=== PATIENT | female | born 1965 | race Two or more races ===

== ENCOUNTER → 2020-06-29 15:33 | Inpatient (IN) | payer OTHER ==
[2020-06-26] VITALS (16 sets, daily range): BP systolic 108–153; BP diastolic 42–76
--- NOTE | 2020-06-26 11:04 | Anethesia Preoperative Eval ---
Anesthesia Pre-op PMH/ROS General Date of Evaluation: Jun 26, 2020 Time of Evaluation: 11:56 Anesthesiologist: Tamia ASA Score: ASA 3 Mallampati Score Class I : Soft palate, uvula, fauces, pillars visible Class II: Soft palate, uvula, fauces visible Class III: Soft palate, base of uvula visible Class IV: Only hard plate visible Mallampati Classification: Class III Surgeon: Josephine Diagnosis: Back Pain Surgical Procedure: ALIF L4-5, PSF L4-5 Anesthesia History: none Family History: no anesthesia problems Allergies: Coded Allergies: No Known Allergies (Unverified , 06/27/19) Medications: see eMAR Patient NPO?: Yes Past Medical History Cardiovascular: Reports: HTN, other - HL Gastrointestinal/Genitourinary: Reports: GERD Endocrine: Reports: DM Other: obesity - BMI 37 PSxH Narrative: Back Sx 2014 Anesthesia Pre-op Phys. Exam Physician Exam Last Vital Signs Date Time Temp Pulse Resp B/P (MAP) Pulse Ox O2 Delivery O2 Flow Rate FiO2 06/26/20 10:44 Room Air 06/26/20 10:17 97.0 65 20 120/52 (74) 100 Constitutional: NAD Neurologic: CN 2-12 intact Cardiovascular: RRR Respiratory: CTA Gastrointestinal: S/NT/ND Airway Exam Mallampati Score: Class III MO: full ROM: limited Teeth: missing, intact Anesthesia Pre-op A/P Risk Assessment & Plan Assessment: ASA 3 Plan: GA, SED, GlideScope Status Change Before Surgery: No Pre-Antibiotics Dru Grams Ancef IV Given Within 1 Hr of Incision: Yes Time Given: 12:26 Javon Cantrell MD Jun 26, 2020 11:04
--- NOTE | 2020-06-26 11:05 | Immediate Post-Op Evaluation ---
Immediate Post-Op Evalulation Immediate Post-Op Evalulation Procedure: ALIF L4-5, PSF L4-5 Date of Evaluation: Jun 26, 2020 Time of Evaluation: 16:38 IV Fluids: 1000 LR Blood Products: 0 Estimated Blood Loss: 75 Urinary Output: 700 Blood Pressure Systolic: 152 Blood Pressure Diastolic: 68 Pulse Rate: 82 Respiratory Rate: 16 O2 Sat by Pulse Oximetry: 100 Temperature (Fahrenheit): 98.2 Pain Score (1-10): 2 Nausea: No Vomiting: No Complications 0 Patient Status: awake, reacts, patent, extubated, none Hydration Status: adequate Dru Grams Ancef IV Given Within 1 Hr of Incision: Yes Time Given: 12:26 Javon Cantrell MD Jun 26, 2020 11:04
--- NOTE | 2020-06-26 11:05 | 48 Hour Post Anesthesia Eval ---
Post Anesthesia Evaluation Procedure: ALIF L4-5, PSF L4-5 Date of Evaluation: Jun 26, 2020 Time of Evaluation: 18:43 Blood Pressure Systolic: 133 0: 61 Pulse Rate: 73 Respiratory Rate: 18 Temperature (Fahrenheit): 98.4 O2 Sat by Pulse Oximetry: 100 Airway: patent Nausea: No Vomiting: No Pain Intensity: 2 Hydration Status: adequate Cardiopulmonary Status: Stable Mental Status/LOC: patient returned to baseline Follow-up Care/Observations: 0 Post-Anesthesia Complications: 0 Follow-up care needed: N/A Javon Cantrell MD Jun 26, 2020 11:05
--- NOTE | 2020-06-26 14:33 | Pre-Procedure Note/Attestation ---
Pre-Procedure Note/Attestation Complete Prior to Procedure Procedure Narrative: L45 XLIF and PSF/decompression Indications for Procedure Pre-Operative Diagnosis: l45 spondylolisthesis and radic Attestation I attest that I discussed the nature of the procedure; its benefits; risks and complications; and alternatives (and the risks and benefits of such alternatives), prior to the procedure, with the patient (or the patient's legal financial service representative). I attest that, if there was a reasonable possibility of needing a blood transfusion, the patient (or the patient's legal financial service representative) was given the [facility] standardized written summary, pursuant to the Michael Mariana Blood Safety Act ([place] Health and Safety Code # 1645, as amended). I attest that I re-evaluated the patient just prior to the surgery and that there has been no change in the patient's H&P, except as documented below: Kuldip Burton MD Jun 26, 2020 14:33
--- NOTE | 2020-06-26 14:34 | Brief Operative Note ---
Immediate Post Operative Note Operative Note Pre-op Diagnosis: l45 spondylolisthesis and radic Procedure: XLIF/PSF L45 with decompression Surgeon: luis enrique Compliance Technician: cinthya Additional Surgeons: theo Anesthesiologist: Bjorn Anesthesia: general Specimen: none Complications: none Condition: stable Fluids: 1L Estimated Blood Loss: volume - 100 Drains: hemovac Implant(s) used?: Yes - 4web xlif and stabalink posterior Kuldip Burton MD Jun 26, 2020 14:34
--- NOTE | 2020-06-26 14:59 | Consultation ---
DATE OF CONSULTATION: 06/26/2020 CONSULTING PHYSICIAN: Nicola Do MD. REFERRING PHYSICIAN: Kuldip Burton MD. REASON FOR CONSULTATION: Acute pain consult. HISTORY OF PRESENT ILLNESS: Dear Dr. Kuldip Burton, Thank you kindly for consulting me to evaluate and render an opinion as to how to proceed in the management of the patient's acute postoperative revision lumbar spine surgery pain today. The patient is a 54-year-old, morbidly obese woman, who injured her lumbar spine in a work-related injury nearly 10 years ago. She underwent previous lumbar spine surgery six years ago. She continues to complain of lumbar spine pain requiring revision lumbar spine instrumentation surgery today. The patient has multiple medical issues including chronic back pain, fibromyalgia, migraine headaches, lupus, morbid obesity, and tobacco usage history. In light of her medical illnesses and chronic pain syndrome, you consulted me to help with her postoperative care and pain management. I saw the patient at bedside with the nurse, CULLEN Pickens. I performed a detailed history and physical examination. I spent over 75 minutes in consultation with an additional 30 minutes in medical record review. Multiple records were reviewed including utilization review and surgical authorization by [employer] for the insurance carrier, Ashwin Kwon, authorizing lumbar spine fusion surgery with instrumentation as certified and authorized. Further record review include preoperative history and physical by Dr. Suman Piña dated along with diagnostic testing. I also reviewed from your orthopedic surgery clinic notes, and multiple records from today's date of surgery at [facility] from June 26, 2020. These hospital records include consent for surgical treatment, consent for anesthesia, consent for blood products, medication administration record, medication reconciliation order form, PACU record, PACU orders, anesthesia record, pre- and post-anesthesia evaluation record, initial nursing assessment, 24-hour medical and surgical flow sheet, Anna-Joyner diagram for cognitive disability, implant log, and guidelines for DVT prophylaxis. PAST MEDICAL HISTORY: 1. Acute postoperative lumbar spine pain, status post revision lumbar spine surgery with instrumentation by Dr. Kuldip Burton, June 2020. 2. Work-related injury. 3. Chronic lumbar spine pain. 4. Severe depression. 5. Migraine headaches. 6. Diabetes. 7. Morbidly obese. 8. Distant tobacco usage. 9. GERD. 10. Hypercholesterolemia. 11. Fibromyalgia. PAST SURGICAL HISTORY: Cholecystectomy and previous lumbar spine surgery in 2015. FAMILY HISTORY: Diabetes, hypertension, thyroid disease, and liver abnormalities. SOCIAL HISTORY: The patient quit tobacco usage a few years ago. She denies alcohol usage. She denies marijuana usage. 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 The patient states that she lives alone, but does have extended family as neighbors. REVIEW OF SYSTEMS: Per attending physician. ALLERGIES: No known drug allergies. MEDICATIONS: Medications at home are Lyrica 200 mg daily, Abilify 15 mg daily, Celebrex, Plaquenil, tramadol, Imitrex, metformin, Lipitor, and Prilosec. The patient states that she has tolerated Dilaudid and oxycodone during the past spinal surgery. PHYSICAL EXAMINATION: GENERAL: Age 54. Height 5 feet 3 inches, weight 210 pounds. Body mass index 37. VITAL SIGNS: Afebrile, pulse 84, respirations 20, blood pressure 120/52. O2 saturation 100%. HEENT: Normocephalic and atraumatic. . Extraocular muscles intact. HEART: Regular rate and rhythm. Normal S1, S2. CHEST: Clear to auscultation bilaterally. ABDOMEN: Obese. NEUROLOGIC: Detailed neurologic exam per Dr. Burton. DIAGNOSTIC TESTING: Shows 12-lead EKG normal sinus rhythm, ventricular rate 68, dated June 2020. Preoperative chest x-ray shows no evidence of acute cardiopulmonary disease dated June 22, 2020. COVID testing negative June 22, 2020. Preoperative labs on June 22, 2020 include glucose 145, sodium 142, potassium 4.9, chloride 108, bicarb 25, BUN 13, creatinine 1.0. Calcium 9.4. Total protein 7.0, albumin 4.4. AST 14, ALT 13, alkaline phosphatase 104. Total bilirubin 0.3. TSH 0.8. Glycosylated hemoglobin 6.2. Sedimentation rate 88. White count 5, hematocrit 38, platelets 230. INR 1.1. PTT 27. MRI lumbar spine dated August 12, 2018. Impression 2 to 3 mm diffuse broad based disk bulges at L2-3 and L3-4 with a 4 to 5 mm asymmetric broad base disc bulge at L5-S1 causing moderate left lateral recess and left neural foraminal stenosis as well as mild right neural foraminal narrowing. IMPRESSION: 1. Acute postoperative lumbar spine pain, status post revision lumbar spine surgery with instrumentation by Dr. Kuldip Burton, June 2020. 2. Work-related injury. 3. Chronic lumbar spine pain. 4. Severe depression. 5. Migraine headaches. 6. Diabetes. 7. Morbidly obese. 8. Distant tobacco usage. 9. GERD. 10. Hypercholesterolemia. 11. Fibromyalgia. TREATMENT RECOMMENDATIONS: The patient states that after previous surgery in 2014 for her lumbar spine, she was in severe postoperative pain. She used quite a bit of oxycodone as well as [employer] Dilaudid in the hospital. After today's revision lumbar spine surgery, I would recommend a high dose Dilaudid [employer] unit postoperatively. I have instructed the pharmacy team to start Dilaudid [employer] with no underlying basal or continuous rate. We will be starting [employer] demand button dose of 0.3 mg with a 12-minute lockout. I have also listed a 4-hour limit of 5 mg. In addition, I have added breakthrough dosing of Dilaudid 1 mg subcutaneously every three hours p.r.n. for severe breakthrough pain. The patient believes Flexeril has worked as a muscle relaxant, so I have added this agent 10 mg orally every 8 hours p.r.n. I will start her on a trial of oxycodone instant release 15 mg orally every three hours pain for moderate pain. The doses of the opioid narcotics will be adjusted as needed to moderate pain levels and help her advancing physical therapy training. I will restart her baseline Lyrica dosing of 200 mg each morning along with 15 mg oral Abilify dose, which will be needed for mood stabilization, as severe anxiety or depression exacerbate her pain complaints. The patient has history of fibromyalgia. She also has a migraine headache history. I have ordered Fioricet one tablet orally every 8 hours p.r.n. for simple headaches with a p.r.n. dose of Imitrex oral 50 mg dosing daily as needed for migraine headache exacerbations. The patient has chronic GERD. I have added Protonix 40 mg nightly for GI ulcer prophylaxis and I have ordered p.r.n. dose of Mylanta 30 mL every 6 hours in case of any GERD symptom exacerbation. Zofran has been ordered as an antiemetic dose at 4 mg intravenously every 4 hours p.r.n. I have also ordered Benadryl 25 mg orally every six hours p.r.n. I have asked nursing team to place Chloraseptic spray at the bedside in case of any postoperative sore throat complaints. I will start the patient on Catapres 0.1 mg orally every 8 hours in case of systolic blood pressure readings greater than 160 mmHg. Tylenol has been ordered as an antipyretic. I have ordered incentive spirometer to encourage good pulmonary toilet in this obese woman. I will defer DVT prophylaxis to the surgeon. The patient states that the surgeon has already requested the patient be transferred to acute rehabilitation facility once she is stabilized here at [facility] after her revision lumbar spine surgery. Nicola Do M.D. DR: MARQUITA JOB#: [id number] CC:
--- NOTE | 2020-06-26 16:29 | Operative Note - Dictated ---
DATE OF OPERATION: 06/26/2020 SURGEON: Kuldip Burton MD. MANAGER WATER: Alpesh Holguin PA-C. VASCULAR ACCESS SURGEON: Romeo Herrera MD. ANESTHESIOLOGIST: Javon Cantrell MD. ANESTHESIA TYPE: General endotracheal anesthesia. PREOPERATIVE DIAGNOSIS: Spondylolisthesis L4-L5. POSTOPERATIVE DIAGNOSIS: Spondylolisthesis L4-L5. PROCEDURE: 1. ALIF L4-5 Via Anterior psoas extreme lateral interbody fusion/anterolateral approach. 2. Use of 4 WEB structural XLIF cage. 3. Signafuse bone graft material. 4. Use of fluoroscopy. ESTIMATED BLOOD LOSS: Minimal. COMPLICATIONS: None. FINDINGS: Stable fixation anteriorly using XLIF. INDICATIONS: The patient is a very pleasant woman, 54 years old with fairly severe and intractable back pain, radiation both legs, left worse than right. Surgical intervention was recommended to stabilize the L4-L5 level, which has radiographic findings of instability with advanced facet arthrosis. The patient understood, wished to proceed. RISK NOTE: The patient was explained in detail risks, benefits of surgery to include, but not be limited to those of bleeding, infection, damage to nerves, vessels, tendons, anesthetic risk, allergic reaction, aspiration, possibly . The patient understood and wished to proceed. OPERATIVE PROCEDURE IN DETAIL: The patient was taken to the operating suite. After general endotracheal anesthesia was obtained, Desai catheter was placed. She was turned right side down lateral decubitus position. She was bolstered and strapped into place. At this point, under fluoroscopic guidance, the anterior to the psoas approach was chosen for the L4-L5 level based on the positioning of the iliac crest. The abdomen was prepped and draped in usual sterile fashion. The vascular team then proceeded with anterolateral incision and dissection was carried out bluntly through the anterior lateral musculature. The peritoneum was identified and a retroperitoneal exposure was carried out lateral to the peritoneum along the psoas down to the level of the vertebral body/disc space. An initial probe was placed along the anterolateral corner of the vertebral body/disc space and it was noted to be in good overall position. A guide wire was inserted. At this point, the dilators were serially placed. The retractor system was then placed over the 3 dilators and gentle distraction was obtained with direct visualization. Outside of the field of view and was retracted medially with the middle blade. At this point, the retractor was fully deployed and excellent visualization was obtained. The guidewire was removed. A 10 blade was used to perform an annulotomy cut then with a series of box chisels, endplate Derrick, pituitaries, rasps. The disk was removed and decortication of the endplate was achieved. This was performed using standard anterolateral approach using bayonetted instrumentation. Fluoroscopically, excellent overall positioning was noted. Ultimately, a trial implant was chosen 45 x 10 mm lordotic. It was centrally packed with Signafuse and deployed and verified under fluoroscopic visualization. The retractor blades were then loosened, removed. Final inspection demonstrated no bleeding. Final closure will be dictated separately by Dr. Herrera. Kuldip Burton M.D. DR: JIAN JOB#: [id number] CC: YINA
[2020-06-26] MEDS: Hydromorphone 0.5mg/0.5ml inj IVP PRN ×2 (16:45→17:15)
[2020-06-26] MEDS: Docusate 100mg cap ORAL SCH (18:20)
--- NOTE | 2020-06-26 18:20 | NUR ---
NURSE NOTES: I received report from CULLEN Cuevas; patient came to the floor 1805 from PACU; patient awake, looks tired and in pain; on Nasal Cannula 3 liters, no sign of distress and shortness of breath; surgical site at the anterior and posterior site noted; dressing dry and intact for both; Hemovac in place on the posterior surgical; Ice pack placed on the posterior surgical site; patient able to move her legs, able to squeeze well on both hands; Dilaudid [employer] volume 27.8 cc noted; belonging list counted and signed by transferring and receiving nurse's. side rials up x2, breaks engaged, bed at lowest position; call light within reach; will keep monitoring.
[2020-06-26] MEDS: D5 1/2NS 1,000 ML IV SCH (18:30)
--- NOTE | 2020-06-26 18:30 | NUR ---
NURSE NOTES: I called RT to get Incentive Spirometer; waiting for IS
[2020-06-26] MEDS: PCA shift volume MISC SCH (19:20)
--- NOTE | 2020-06-26 19:42 | NUR ---
NURSE NOTES: Patient asleep in bed, easily awake to name, on nasal cannula @3LPM oxygen. With dressing on left above groin area, dry and intact. Hemovac is intact and connected on the back. Repositioned with staff help. Instructed to use call light for assistance. Call light and needs in reach. Bed in lowest and locked. Will continue to monitor.
--- NOTE | 2020-06-26 19:42 | NUR ---
NURSE HAND-OFF: Important Events on Shift:pain management Patient Status: Diet: Pending Orders: Pending Results/Labs: Pending MD notification: Latest Vital Signs: Temperature 97.5 , Pulse 94 , B/P 118 /42 , Respiratory Rate 19 , O2 SAT 97 , Nasal Cannula, O2 Flow Rate 3 . Vital Sign Comment: Latest Garcia Fall Score: Fall Risk: Safety Measures: Call light Within Reach, Bed Alarm Zone 1, Side Rails Side Rails x1, Bed position Low and Locked. Fall Precautions: Report given to .
[2020-06-26] MEDS: ceFAZolin sod 1 GM in D5W 55 ML IV SCH (21:00)
--- NOTE | 2020-06-26 21:28 | Operative Note - Dictated ---
DATE OF OPERATION: 06/26/2020 SURGEON: Kuldip Burton MD STAFF [facility] OFFICER: Alpesh Holguin PA-C ANESTHESIOLOGIST: Javon Cantrell MD ANESTHESIA TYPE: General endotracheal anesthesia. PREOPERATIVE DIAGNOSES: 1. Status post prior laminectomy, L4-L5, with residual stenosis and instability; spondylolisthesis, L4-L5. 2. Status post extreme lateral interbody fusion using anterior to psoas approach. POSTOPERATIVE DIAGNOSES: 1. Status post prior laminectomy, L4-L5, with residual stenosis and instability; spondylolisthesis, L4-L5. 2. Status post extreme lateral interbody fusion using anterior to psoas approach. OPERATION PERFORMED: 1. Posterior spinal fusion, L4-L5. 2. Interspinous fixation, L4-L5, using stapling. 3. Left-sided redo hemilaminectomy, L4-L5. 4. Use of fluoroscopy. 5. Use of local autograft bone as well as [place] putty and Signafuse. INDICATIONS: The patient is a very pleasant woman, status post prior laminoforaminotomies at L4-L5 resulting in segmental instability on flexion and extension. She had notable spondylolisthesis with significant fluid within the facet joints on MRI consistent with synovitis. Due to the intractable nature of her pain, surgical intervention was recommended. She understood and elected to proceed. RISK NOTE: The patient was explained in detail risks, benefits of surgery to include but not be limited to those of bleeding, infection, damage to nerves/vessels/tendons, possible risk of ongoing pain, pseudoarthrosis, need for additional surgery were discussed. The patient understood and wished to proceed. OPERATIVE PROCEDURE IN DETAIL: Under benefits of general anesthesia, the patient was turned prone onto the Manan frame. Back was prepped and draped in usual sterile fashion. Care was taken to avoid any pressure points, which were all padded. At this point, the prior incision was identified. Once the back was prepped and draped in usual sterile fashion, the prior incision was infiltrated with Marcaine with epinephrine. The prior incision was reopened a total of 2.5 inches. The subperiosteal dissection was carried out. Extensive scarring was encountered. Fluoroscopically, the L4-L5 level was identified. The left-sided redo hemilaminotomy was performed using standard technique using high-speed drill, Kerrison punch, and micro-curettes. Once satisfied with the decompression, the interspinous ligament was removed. The inferior portion of the spinous process of L4 and superior portion of spinous portion of L5 was then decorticated with the rasp. An 8 mm interspinous device was chosen. The facet joints were then serially decorticated and local autograft bone as well as Signafuse bone putty were inserted into the facet joint, primarily on the right side. The bone graft fusion was then applied primarily on the right side, but also to a small extent on the left side. At this point, the interspinous device stapling was deployed and secured to the spinous processes with maximum torque. The device was locked into place and noted to have excellent bony apposition and fixation. Copious irrigation was then performed. A medium-sized Hemovac drain was placed deep to the fascia. Vancomycin was placed both deep and superior to the fascia. Fascia was repaired using #1 Vicryl, subcu closure using 2-0 Vicryl. Dermabond and sterile dressing was applied. At the time of this dictation, the patient was awaiting extubation and being awakened. Kuldip Burton M.D. DR: JIAN JOB#: [id number] CC:
--- NOTE | 2020-06-27 02:29 | Operative Note - Dictated ---
DATE OF OPERATION: 06/26/2020 SURGEON: Soraida Hua MD VASCULAR SURGEON: Soraida Hua MD SPINE SURGEON: Kuldip Burton MD PREOPERATIVE DIAGNOSIS: Lumbar pain. POSTOPERATIVE DIAGNOSIS: Lumbar pain. PROCEDURE PERFORMED: Oblique retroperitoneal exposure of L4-L5 vertebral interspace, left retroperitoneal approach. INDICATIONS: The patient is a very pleasant woman who was seen prior to surgery. She is obese with BMI of over 35. She has no history of prior anterior spine surgery. She has no history of degenerative scoliosis or other complications. She was made aware of risks of vascular surgery including vascular injury, possible need for blood transfusion, deep venous thrombosis. DESCRIPTION OF FINDINGS: The patient was taken . A left lower quadrant incision was used. A left retroperitoneal approach was performed and then the localized to the lateral anterior aspect of L4-5. A lumbar vein was identified, ligated with vascular clips and divided . This allowed us to . Fluoroscopy was used to confirm L4-5 and instrumentation performed at L4-5, which will be dictated separately. On completion of then removed. Peritoneum and ureter intact. Iliac vessels intact. . Iliac artery was intact. closed with running PDS and then skin and subcutaneous tissue closed with 3-0 Vicryl and 4-0 Monocryl in subcuticular closure technique. Soraida Hua M.D. DR: Maggi JOB#: [id number] CC: Kuldip Burton M.D.; Fax#: [phone] SORAIDA HUA M.D. ; FAX#: [phone]
[2020-06-27] MEDS: D5 1/2NS 1,000 ML IV SCH ×2 (03:41→14:50)
[2020-06-27 04:00] VITALS: BP 109/45
[2020-06-27 04:03] VITALS: BP 109/45
[2020-06-27] MEDS: ceFAZolin sod 1 GM in D5W 55 ML IV SCH ×2 (05:03→14:47)
--- NOTE | 2020-06-27 05:24 | NUR ---
NURSE NOTES: Hemovac output = 50ml serosanguineous Urine output = 750ml Patient reported has pas gas. Changed diet to clear liquids. Spoke with Dr. Do, don't advance diet, clear liquids is ok for now. Patient on room air saturating 95%, denies SOB.
[2020-06-27 05:58] LABS: BASOPHILS % (AUTO) 0.6 % (0.0-2.0); EOSINOPHILS % (AUTO) 0.5 % (0.0-3.0); HEMATOCRIT 37.1 % (37.0-47.0); HEMOGLOBIN 11.6 G/DL (12.0-16.0); LYMPHOCYTES % (AUTO) 19.1 % (20.0-45.0); MEAN CORPUSCULAR VOLUME 85 FL (80-99); MONOCYTES % (AUTO) 7.7 % (1.0-10.0); NEUTROPHILS % (AUTO) 72.1 % (45.0-75.0); PLATELET COUNT 193 K/UL (150-450); RED BLOOD COUNT 4.38 M/UL (4.20-5.40); RED CELL DISTRIBUTION WIDTH 13.6 % (11.6-14.8); WHITE BLOOD COUNT 7.6 K/UL (4.8-10.8)
[2020-06-27 06:11] LABS: CALCIUM 8.3 MG/DL (8.5-10.1); POTASSIUM 4.2 MMOL/L (3.5-5.1)
--- NOTE | 2020-06-27 06:54 | NUR ---
NURSE HAND-OFF: Important Events on Shift: Pt passed gas, on room air, manager personal Patient Status: Diet: clear liquid Pending Orders: dc Desai Pending Results/Labs: Pending MD notification: Latest Vital Signs: Temperature 98.7 , Pulse 75 , B/P 109 /45 , Respiratory Rate 16 , O2 SAT 95 , Nasal Cannula, O2 Flow Rate 2.0 . Vital Sign Comment: Latest Garcia Fall Score: Fall Risk: Safety Measures: Call light Within Reach, Bed Alarm Zone 1, Side Rails Side Rails x2, Bed position Low and Locked. Fall Precautions: Yellow Socks Patient Fall Education
--- NOTE | 2020-06-27 07:06 | NUR ---
NURSE HAND-OFF: Report given to CULLEN Rivers.
[2020-06-27] MEDS: PCA shift volume MISC SCH ×2 (07:11→19:00)
--- NOTE | 2020-06-27 07:44 | NUR ---
NURSE NOTES: Patient awake and alert and oriented,respirations unlabored.IV fluids infusing as ordered . MAXILLOFACIAL PATHOLOGY Hydromorphone as ordered. Desai catheter is in place with clear sage color urine noted.Dressing to the lower back clean,hemovac in place with small amount of bloody drainage noted.Pedal pulses are strong..Patient started on clear liquids.Bed alarm on,call light within reach.
[2020-06-27 08:00] VITALS: BP 102/62
[2020-06-27] MEDS: Docusate 100mg cap ORAL SCH ×2 (09:35→18:35)
--- NOTE | 2020-06-27 09:35 | NUR ---
PT NOTE Patient forgot her brace at home. Per Yuli at Dr. Burton's office, a new brace will be delivered to the hospital in the next half hour.
--- NOTE | 2020-06-27 11:25 | NUR ---
PT EVALUATION NOTE Patient seen for initial evaluation and treatment initiated. Patient presents with pain and impaired mobility s/p lumbar surgery. Patient instructed in back precautions and in log roll technique for in/OOB. Patient required mod/max assist for bed mobility. Sit to stand with min assist and FWW, donned lumbar brace in standing with total assist. Patient able to ambulate 10 ft with CGA and FWW, slow pace, guarded. Mobility limited by pain and c/o feeling "sleepy". Patient will benefit from skilled inpatient PT intervention to increase postural stability and decrease pain for improved level of functional mobility and safety. Recommend discharge to ARU for continued rehab once medically cleared by MD as patient lives alone. Recommend FWW for ambulation and raised toilet seat for home use. Addendum: 06/27/20 at 1241 by ANA NORMAN PT Amended: Links added.
--- NOTE | 2020-06-27 11:30 | NUR ---
PT NOTE Patient requesting to defer p.m. treatment due to c/o feeling sleepy, wants to rest. Tita BERMAN notified, will follow up tomorrow.
[2020-06-27] MEDS: Lyrica 50mg cap ORAL SCH (11:41)
--- NOTE | 2020-06-27 11:54 | Diagnostic Imaging Report ---
CLINICAL HISTORY: Back pain.. Fluoroscopic imaging from spinal surgery COMPARISON: None FINDINGS: Fluoroscopy independent procedure performed for spinal surgery. 46.8 seconds of fluoroscopy time utilized by the ordering physician. Total cumulative dose is 22.9 mGy. Total of 3 spot images are obtained. IMPRESSION: FLUOROSCOPY GUIDED PROCEDURE.
[2020-06-27 12:00] VITALS: BP 112/49
--- NOTE | 2020-06-27 14:24 | Orthopedic Spine Progress Note ---
Ortho Spine - Progress Note Subjective Symptoms: c/o post-op back pain, improved - as compared to pre-op Objective Vital Signs: Last 24 Hour Vital Signs Date Time Temp Pulse Resp B/P (MAP) Pulse Ox O2 Delivery O2 Flow Rate FiO2 06/27/20 12:00 98.1 83 20 112/49 (70) 97 06/27/20 12:00 83 20 95 06/27/20 09:00 Nasal Cannula 2.0 06/27/20 08:00 72 20 95 06/27/20 08:00 97.1 72 20 102/62 (75) 95 06/27/20 04:03 75 16 95 06/27/20 04:00 98.7 75 16 109/45 (66) 95 06/26/20 23:59 73 16 95 06/26/20 23:45 97.9 78 16 113/45 (67) 99 06/26/20 20:37 Nasal Cannula 2.0 06/26/20 20:00 75 14 100 06/26/20 20:00 98.1 75 14 108/48 (68) 100 06/26/20 18:50 97.5 94 19 118/42 (67) 97 06/26/20 18:35 97.5 94 19 118/42 (67) 97 06/26/20 18:20 97.5 99 19 118/42 (67) 98 06/26/20 18:05 97.5 81 19 118/42 (67) 97 06/26/20 17:55 12 06/26/20 17:55 98.4 06/26/20 17:40 14 06/26/20 17:40 98.4 81 12 123/48 100 Nasal Cannula 3 06/26/20 17:25 78 14 130/45 100 Simple Mask 6 06/26/20 17:25 15 06/26/20 17:15 97.2 06/26/20 17:15 97.2 06/26/20 17:10 76 12 142/44 100 Simple Mask 6 06/26/20 16:55 76 11 138/57 100 Simple Mask 6 06/26/20 16:45 76 11 135/58 100 Simple Mask 6 06/26/20 16:35 76 12 152/67 100 Simple Mask 6 06/26/20 16:30 76 12 153/76 100 Simple Mask 6 06/26/20 16:25 97.0 79 16 152/68 100 Simple Mask 6 06/26/20 16:24 73 18 100 I&O: Intake and Output 06/26/20 06/27/20 19:00 07:00 Intake Total 1150 ml 1110 ml Output Total 775 ml 800 ml Balance 375 ml 310 ml Intake Oral 200 ml IV Total 1150 ml 910 ml Output Urine Total 700 ml 750 ml Drainage Total 50 ml Estimated Blood Loss 75 ml # Voids 1 Wound: clean, intact Drains: hemovac Neuro Status: normal Assessment Procedure Performed: XLIF/PSF L45 with decompression Plan Plan: PT, pain management, d/c drain, discharge plan - to aru when bed avilable Additional Comments: Kuldip Hughes MD Jun 27, 2020 14:24
--- NOTE | 2020-06-27 14:35 | NUR ---
NURSE NOTES: DR Downs here and Lloyd lynn discontinued as ordered.Hemovac was removed by DR Burton.
[2020-06-27 16:00] VITALS: BP_SYST 112; BP_SYST 123; BP_DIAS 49; BP_DIAS 62
--- NOTE | 2020-06-27 16:09 | NUR ---
*-*DISCHARGE PLANNING*-* PATIENT HAS BEEN REFERRED TO: [facility] P: [phone] S/W TONO, WILL CALL BACK AFTER REVIEW.
--- NOTE | 2020-06-27 19:06 | NUR ---
NURSE NOTES: Dressing to the lower back remains clean ,dressing to the lower left abdominal area remains clean .patient unable to void,bladder scan done with 346ml noted on bladder scanner.Will notify DR Burton.
--- NOTE | 2020-06-27 19:20 | NUR ---
NURSE HAND-OFF: Theodora BERMAN Important Events on Shift:[patient unable to void,straight cath ordered.] Patient Status: [] Diet: []full liquids Pending Orders: [] Pending Results/Labs:[] Pending MD notification:[] Latest Vital Signs: Temperature 98.1 , Pulse 83 , B/P 112 /49 , Respiratory Rate 20 , O2 SAT 95 , Nasal Cannula, O2 Flow Rate 2.0 . Vital Sign Comment: [] Latest Garcia Fall Score: Fall Risk: Y Safety Measures: Call light Within Reach, Bed Alarm Zone 1, Side Rails Side Rails x2, Bed position Low and Locked. Fall Precautions: Yellow Socks Patient Fall Education Report given to [].
--- NOTE | 2020-06-27 19:30 | NUR ---
NURSE NOTES: Received patient in bed. A&OX4. IV site patent and intact. Surgical dressing noted on lower back and left anterior abdomen, dry and intact. On OPERATOR HELPER. Bed in lowest position. Call light within reach. Will continue to monitor.
[2020-06-27 20:00] VITALS: BP 133/59
--- NOTE | 2020-06-27 20:21 | Pain Management Progress Note ---
Allergies: Coded Allergies: No Known Allergies (Unverified , 06/27/19) Vitals Vital Signs Date Time Temp Pulse Resp B/P (MAP) Pulse Ox O2 Delivery O2 Flow Rate FiO2 06/27/20 16:00 83 20 95 Medications Current Medications Acetaminophen (Tylenol) 650 mg Q4H PRN ORAL headache; Start 06/26/20 at 14:30; Stop 07/26/20 at 14:29 Acetaminophen (Tylenol) 650 mg Q6H PRN ORAL Temp >100.5; Start 06/26/20 at 12:00; Stop 07/26/20 at 11:59 Acetaminophen/ Butalbital/ Caffeine (Fioricet) 1 tab Q8H PRN ORAL headache; Start 06/26/20 at 12:00; Stop 07/26/20 at 11:59 Al Hydroxide/Mg Hydroxide (Mylanta) 30 ml Q6H PRN ORAL gerd; Start 06/26/20 at 12:00; Stop 07/26/20 at 11:59 Aripiprazole (Abilify) 15 mg DAILY ORAL Last administered on 06/27/20at 11:39; Start 06/27/20 at 09:00; Stop 08/11/20 at 08:59 Clonidine HCl (Catapres Tab) 0.1 mg Q8H PRN ORAL For High Blood Pressure; Start 06/26/20 at 12:00; Stop 09/24/20 at 11:59 Cyclobenzaprine HCl (Flexeril) 10 mg Q8H PRN ORAL Muscle Spasm; Start 06/26/20 at 12:00; Stop 07/03/20 at 11:59 Dextrose/Sodium Chloride 1,000 ml @ 100 mls/hr Q10H IV Last administered on 06/27/20at 14:50; Start 06/26/20 at 18:30; Stop 07/26/20 at 18:29 Diphenhydramine HCl (Benadryl) 25 mg Q6H PRN ORAL Itching; Start 06/26/20 at 12:00; Stop 07/26/20 at 11:59 Docusate Sodium (Colace) 100 mg TWICE A DAY ORAL Last administered on 06/27/20at 18:35; Start 06/26/20 at 18:00; Stop 07/26/20 at 17:59 Hydromorphone HCl 30 ml @ 0 mls/hr OFFSET PLATE MAKER protocol PRN IV For Pain Last administered on 06/26/20at 17:25; Start 06/26/20 at 12:00; Stop 06/28/20 at 11:59 Hydromorphone HCl (Dilaudid) 1 mg Q3H PRN SUBQ Severe Breakthru Pain (>7); Start 06/26/20 at 12:00; Stop 07/03/20 at 11:59 Miscellaneous Medication (OFFSET PLATE MAKER Rate Change) 1 ea DAILY PRN MISC OFFSET PLATE MAKER RATE CHANGE; Start 06/26/20 at 12:30; Stop 06/28/20 at 12:29 Miscellaneous Medication (OFFSET PLATE MAKER shift volume) 1 ea Q12HR@0700,1900 MISC Last administered on 06/27/20at 19:00; Start 06/26/20 at 19:00; Stop 06/28/20 at 18:59 Naloxone HCl (Narcan) 0.1 mg Q1M PRN IV RR<10/min OR SBP<90 mmHg; Start 06/26/20 at 12:30; Stop 06/28/20 at 12:29 Ondansetron HCl (Zofran) 4 mg Q4H PRN IVP Nausea & Vomiting; Start 06/26/20 at 12:00; Stop 07/26/20 at 11:59 Oxycodone HCl (Roxicodone) 15 mg Q3H PRN ORAL Moderate Pain (Pain Scale 4-6); Start 06/26/20 at 12:00; Stop 07/03/20 at 11:59 Pantoprazole (Protonix) 40 mg BEDTIME ORAL ; Start 06/26/20 at 21:00; Stop 07/26/20 at 20:59 Phenol/Menthol (Chloraseptic) 1 spray Q2H PRN ORAL sore throat; Start 06/26/20 at 12:00; Stop 09/24/20 at 11:59 Pregabalin (Lyrica) 200 mg DAILY ORAL Last administered on 06/27/20at 11:41; Start 06/27/20 at 09:00; Stop 08/11/20 at 08:59 Prochlorperazine (Compazine) 10 mg Q6H PRN IVP Nausea & Vomiting; Start 06/26/20 at 14:30; Stop 07/26/20 at 14:29 Sumatriptan Succinate (Imitrex) 50 mg DAILY PRN ORAL migraine; Start 06/26/20 at 12:15; Stop 07/26/20 at 12:14 Temazepam (Restoril) 15 mg HSPRN PRN ORAL Insomnia; Start 06/26/20 at 14:30; Stop 07/03/20 at 14:29 Laboratory Laboratory Tests 06/27/20 05:44: White Blood Count 7.6, Red Blood Count 4.38, Hemoglobin 11.6L, Hematocrit 37.1, Mean Corpuscular Volume 85, Mean Corpuscular Hemoglobin 26.4L, Mean Corpuscular Hemoglobin Concent 31.2L, Red Cell Distribution Width 13.6, Platelet Count 193, Mean Platelet Volume 9.2, Neutrophils (%) (Auto) 72.1, Lymphocytes (%) (Auto) 19.1L, Monocytes (%) (Auto) 7.7, Eosinophils (%) (Auto) 0.5, Basophils (%) (Auto) 0.6, Sodium Level 140, Potassium Level 4.2, Chloride Level 107, Carbon Dioxide Level 27, Anion Gap 6, Blood Urea Nitrogen 10, Creatinine 1.0, Estimat Glomerular Filtration Rate 58.2, Glucose Level 153H, Calcium Level 8.3L Plan: Patient seen with nurse. Surgeon removed hemovac drain during the past shift. Pain level 5 / 10 on the visual-analog pain scale. Continue OFFSET PLATE MAKER as ordered overnight; then d/c in am. PRN oxy-IR and sq dilaudid available. MAR medication list reviewed. Clear liquids diet tolerated without emesis. Will trial full liquid, then advance diet SLOWLY, as +flatus after ALIF. Desai removed per srgn; still awaiting urine flow. + headache [mild]; chronic headaches/migraines. Pt drinks caffeine daily, but hasn't had coffee in 2 days. Might be caffeine-withdrawal headache. I recommended pt to order caffeine drinks, especially coffee with breakfast; and will trial fioricet now. Encourage incentive spirometer usage. Encourage advancing ambulation with physical therapy as tolerated. Pt only stood at bedside today. SCDs for mechanical prophylaxis against deep venous thrombosis and PEs. Discussed discharge planning with RNs to help expedite hospital discharge. Surgeon recommends ARU txfr. No Rx needed for outpt pain medication usage at this time, since planning ARU txfr.. Nicola Do MD Jun 27, 2020 20:20
--- NOTE | 2020-06-27 22:09 | NUR ---
NURSE NOTES: performed straight cath, obtained 1100ml urine.
[2020-06-28] VITALS: BP 102/55
[2020-06-28] MEDS: D5 1/2NS 1,000 ML IV SCH (00:22)
[2020-06-28 04:00] VITALS: BP 115/53
--- NOTE | 2020-06-28 07:19 | Pain Management Progress Note ---
Allergies: Coded Allergies: No Known Allergies (Unverified , 06/27/19) Vitals Vital Signs Date Time Temp Pulse Resp B/P (MAP) Pulse Ox O2 Delivery O2 Flow Rate FiO2 06/28/20 04:00 75 18 97 06/28/20 04:00 97.9 75 18 115/53 (73) 97 06/28/20 00:00 80 20 95 06/28/20 00:00 97.7 80 20 102/55 (71) 95 Medications Current Medications Acetaminophen (Tylenol) 650 mg Q4H PRN ORAL headache; Start 06/26/20 at 14:30; Stop 07/26/20 at 14:29 Acetaminophen (Tylenol) 650 mg Q6H PRN ORAL Temp >100.5; Start 06/26/20 at 12:00; Stop 07/26/20 at 11:59 Acetaminophen/ Butalbital/ Caffeine (Fioricet) 1 tab Q8H PRN ORAL headache; Start 06/26/20 at 12:00; Stop 07/26/20 at 11:59 Al Hydroxide/Mg Hydroxide (Mylanta) 30 ml Q6H PRN ORAL gerd; Start 06/26/20 at 12:00; Stop 07/26/20 at 11:59 Aripiprazole (Abilify) 15 mg DAILY ORAL Last administered on 06/27/20at 11:39; Start 06/27/20 at 09:00; Stop 08/11/20 at 08:59 Clonidine HCl (Catapres Tab) 0.1 mg Q8H PRN ORAL For High Blood Pressure; Start 06/26/20 at 12:00; Stop 09/24/20 at 11:59 Cyclobenzaprine HCl (Flexeril) 10 mg Q8H PRN ORAL Muscle Spasm; Start 06/26/20 at 12:00; Stop 07/03/20 at 11:59 Dextrose/Sodium Chloride 1,000 ml @ 100 mls/hr Q10H IV Last administered on 06/28/20at 00:22; Start 06/26/20 at 18:30; Stop 07/26/20 at 18:29 Diphenhydramine HCl (Benadryl) 25 mg Q6H PRN ORAL Itching Last administered on 06/28/20at 05:56; Start 06/26/20 at 12:00; Stop 07/26/20 at 11:59 Docusate Sodium (Colace) 100 mg TWICE A DAY ORAL Last administered on 06/27/20at 18:35; Start 06/26/20 at 18:00; Stop 07/26/20 at 17:59 Hydromorphone HCl 30 ml @ 0 mls/hr TOOL CLERK protocol PRN IV For Pain Last administered on 06/26/20at 17:25; Start 06/26/20 at 12:00; Stop 06/28/20 at 11:59 Hydromorphone HCl (Dilaudid) 1 mg Q3H PRN SUBQ Severe Breakthru Pain (>7); Start 06/26/20 at 12:00; Stop 07/03/20 at 11:59 Miscellaneous Medication (TOOL CLERK Rate Change) 1 ea DAILY PRN MISC TOOL CLERK RATE CHANGE; Start 06/26/20 at 12:30; Stop 06/28/20 at 12:29 Miscellaneous Medication (TOOL CLERK shift volume) 1 ea Q12HR@0700,1900 MISC Last administered on 06/27/20at 19:00; Start 06/26/20 at 19:00; Stop 06/28/20 at 18:59 Naloxone HCl (Narcan) 0.1 mg Q1M PRN IV RR<10/min OR SBP<90 mmHg; Start 06/26/20 at 12:30; Stop 06/28/20 at 12:29 Ondansetron HCl (Zofran) 4 mg Q4H PRN IVP Nausea & Vomiting; Start 06/26/20 at 12:00; Stop 07/26/20 at 11:59 Oxycodone HCl (Roxicodone) 10 mg Q3H PRN ORAL Moderate Pain (Pain Scale 4-6); Start 06/27/20 at 20:30; Stop 07/04/20 at 20:29 Pantoprazole (Protonix) 40 mg BEDTIME ORAL Last administered on 06/27/20at 21:56; Start 06/26/20 at 21:00; Stop 07/26/20 at 20:59 Phenol/Menthol (Chloraseptic) 1 spray Q2H PRN ORAL sore throat; Start 06/26/20 at 12:00; Stop 09/24/20 at 11:59 Pregabalin (Lyrica) 200 mg DAILY ORAL Last administered on 06/27/20at 11:41; Start 06/27/20 at 09:00; Stop 08/11/20 at 08:59 Sumatriptan Succinate (Imitrex) 50 mg DAILY PRN ORAL migraine; Start 06/26/20 at 12:15; Stop 07/26/20 at 12:14 Plan: Patient seen with nurse Oscar. A+Ox3. Pain level 4 / 10 on the visual-analog pain scale. Implored pt to be more active and motivated to move out of bed. In that regard, will remove as many 'hospital lines' as possible to make it easier to move in and out bed. Will d/c TOOL CLERK at this time. Will d/c continuous pulse ox at this time. Will d/c IV fluids at this time. Pt able to hydrate herself with oral intake. No nausea. Will d/c supplemental oxygen at this time. JUN medication list reviewed. PRN oxy-IR and sq dilaudid available & encouraged to increase ambulation. No emesis. Advance diet SLOWLY, as +flatus after ALIF. Desai removed per srgn yesterday; pt unable to void in bed [bedpan] or by sitting on commode. Straight cath by RN. I explained to pt that she needs to AMBULATE to aid urine flow; pt agrees to comply. Fioricet helped with headache [mild] overnight; chronic headaches/migraines. Pt drinks caffeine daily, but hasn't had coffee in 2 days. I recommended pt to order caffeine drinks, especially coffee with breakfast. Continue incentive spirometer usage. Continue advancing ambulation with physical therapy as tolerated. SCDs for mechanical prophylaxis against deep venous thrombosis and PEs. Surgeon recommends ARU txfr. No Rx needed for outpt pain medication usage at this time, since planning ARU txfr. Nicola Do MD Jun 28, 2020 07:19
--- NOTE | 2020-06-28 07:45 | NUR ---
NURSE NOTES: Received report from CULLEN Yip. Pt in bed. A&OX4. Breathing even and unlabored. IV site patent and intact. Surgical dressing noted on lower back and left anterior abdomen, dry and intact. Bed in lowest position. Pt voided 850cc in this morning. Call light within reach. Will continue to monitor.
--- NOTE | 2020-06-28 07:47 | NUR ---
NURSE NOTES: Patient void well now, output was 850ml.
--- NOTE | 2020-06-28 07:52 | NUR ---
NURSE HAND-OFF: Important Events on Shift: Patient void by herself, urine output was 850ml. Endorsed discontinue SWAGER OPERATOR, Oxygen and IV fluid. Patient Status: Diet: Full liquid. Pending Orders: Pending Results/Labs: Pending MD notification: Latest Vital Signs: Temperature 97.9 , Pulse 75 , B/P 115 /53 , Respiratory Rate 18 , O2 SAT 97 , Nasal Cannula, O2 Flow Rate 2.0 . Vital Sign Comment: Latest Garcia Fall Score: Fall Risk: Safety Measures: Call light Within Reach, Bed Alarm Zone 1, Side Rails Side Rails x2, Bed position Low and Locked. Fall Precautions: Yellow Socks Patient Fall Education Report given to Prateek BERMAN.
[2020-06-28 08:00] VITALS: BP 115/50
[2020-06-28] MEDS: Lyrica 50mg cap ORAL SCH (08:35)
[2020-06-28] MEDS: Docusate 100mg cap ORAL SCH ×2 (08:35→18:24)
[2020-06-28 12:00] VITALS: BP 131/67
--- NOTE | 2020-06-28 14:35 | Orthopedic Spine Progress Note ---
Ortho Spine - Progress Note Subjective Symptoms: c/o post-op back pain, improved - as compared to pre-op Objective Vital Signs: Last 24 Hour Vital Signs Date Time Temp Pulse Resp B/P (MAP) Pulse Ox O2 Delivery O2 Flow Rate FiO2 06/28/20 12:12 97.7 06/28/20 12:00 97.7 86 18 131/67 (88) 97 06/28/20 09:00 Room Air 06/28/20 08:00 97.9 78 18 115/50 (71) 97 06/28/20 04:00 75 18 97 06/28/20 04:00 97.9 75 18 115/53 (73) 97 06/28/20 00:00 80 20 95 06/28/20 00:00 97.7 80 20 102/55 (71) 95 06/27/20 21:00 Room Air 06/27/20 20:00 83 16 93 06/27/20 20:00 98.8 83 16 133/59 (83) 93 06/27/20 16:00 72 20 97 06/27/20 16:00 97.1 72 20 123/62 (82) 97 I&O: Intake and Output 06/27/20 06/28/20 19:00 07:00 Intake Total 1558 ml 1100 ml Output Total 1500 ml Balance 58 ml 1100 ml Intake Oral 358 ml IV Total 1200 ml 1100 ml Output Urine Total 1500 ml Wound: clean Drains: none Neuro Status: normal Assessment Procedure Performed: XLIF/PSF L45 with decompression Plan Plan: PT, pain management, discharge plan - to [facility] when bed avail Kuldip Burton MD Jun 28, 2020 14:35
[2020-06-28 16:00] VITALS: BP 128/63
--- NOTE | 2020-06-28 16:54 | NUR ---
*-*DISCHARGE PLANNING*-* PATIENT HAS BEEN REFERRED TO: [facility] P: [phone] S/W TONO, WAITING FOR AUTH, WILL FOLLOW UP TOMORROW 06/29/20.
--- NOTE | 2020-06-28 19:30 | NUR ---
NURSE HAND-OFF: Important Events on Shift:[Waiting for Rehab replacement, Covid rapid antigen test done, Negative.] Patient Status: [] Diet: [reg] Pending Orders: [] Pending Results/Labs:[] Pending MD notification:[] Latest Vital Signs: Temperature 97.5 , Pulse 83 , B/P 128 /63 , Respiratory Rate 18 , O2 SAT 97 , Nasal Cannula, O2 Flow Rate 2.0 . Vital Sign Comment: [stable] Latest Garcia Fall Score: Fall Risk: Safety Measures: Call light Within Reach, Bed Alarm Zone 1, Side Rails Side Rails x2, Bed position Low and Locked. Fall Precautions: Yellow Socks Patient Fall Education Report given to [CULLEN Yip].
--- NOTE | 2020-06-28 19:31 | NUR ---
NURSE NOTES: Received patient in no apparent distress. A&OX4. IV site patent and intact. Surgical dressing noted on lower back and left anterior abdomen, dry and intact. Helping change the position. Bed in lowest position. Call light within reach. Will continue to monitor.
[2020-06-28 20:00] VITALS: BP 137/70
--- NOTE | 2020-06-28 20:13 | Operative Note - Dictated ---
DATE OF OPERATION: 06/26/2020 SURGEON: Romeo Herrera MD VASCULAR SURGEON: Romeo Herrera MD SPINE SURGEON: Kuldip Burton MD PREOPERATIVE DIAGNOSIS: Lumbar pain. POSTOPERATIVE DIAGNOSIS: Lumbar pain. PROCEDURE PERFORMED: Oblique retroperitoneal exposure of L4-5 vertebral interspace, left retroperitoneal approach. INDICATIONS: The patient is a very pleasant woman who was seen prior to surgery. She is obese with BMI of over 35. She has no prior anterior spine surgery. She had been made aware of the risks of vascular surgery including vascular injury, possible need for blood transfusion, and deep venous thrombosis. DESCRIPTION OF FINDINGS: The procedure was performed on the left side up. Left oblique incision was used. A left retroperitoneal approach was used. There was no peritoneal or ureteral violation. There was no vascular injury. Exposure of L4-5 was confirmed using fluoroscopy. On completion, the peritoneum and ureter were intact and the patient has palpable DP pulses and normal pulse oximetry in the left lower extremity. Blood loss was less than mL. DESCRIPTION OF PROCEDURE: The patient was taken to the operating room and placed in left side up position. Preoperative fluoroscopy was used to denis L4-5 on the left lower quadrant. The patient's left flank and abdomen were then prepped and draped. An oblique incision was made in the left lower quadrant. Dissection was carried through the external oblique sharply and then the oblique musculature was bluntly dissected to expose the transversalis fascia. This was then sharply dissected and then the retroperitoneal space was entered lateral to the rectus abdominis. Blunt dissection was then carried posteromedially and the peritoneum and ureter were stuck toward the patient's right exposing the lateral border of the left iliac artery and vein. Fluoroscopy was then used and the disk space was actually palpated. The psoas fibers were retracted posteriorly and the medial border of the left iliac vein was visualized. The iliolumbar vein was identified and doubly ligated proximally and distally with vascular clips. At this time, we were then able to place the dilator for the TeDan retractor system into L4-L5. At this time, the retractor system was then deployed by placing the dilators and then deployment of retractor. Fluoroscopy confirmed appropriate placement of retractors and then instrumentation was performed at L4-5, dictated separately. On completion, retractor was gently removed. The peritoneum and ureter were intact. Iliac vessels were intact. There was no retroperitoneal bleeding. The internal oblique fascia was then closed using interrupted PDS sutures. An external oblique fascia was closed using running #1 PDS suture. The skin and subcutaneous tissue was closed with 3-0 Vicryl and 4-0 Monocryl. The patient tolerated procedure well. BLOOD LOSS: Less than mL. COMPLICATIONS: None. Romeo Herrera M.D. DR: Maggi JOB#: [id number] CC:
[2020-06-28] MEDS: oxyCODONE 5mg IR tab ORAL PRN (21:18)
[2020-06-29] VITALS: BP 101/50
[~2020-06-29] VITALS: Ht 160 cm; Wt 90.7 kg
[2020-06-29 04:00] VITALS: BP 107/68
[2020-06-29 08:00] VITALS: BP 138/76
--- NOTE | 2020-06-29 08:00 | NUR ---
NURSE NOTES: Patient awake and alert and oriented,respirations unlabored.Surgical dressing to the lower back intact and to the lower right anterior abdomen in place.Bilateral pedal pulses strong. Patient sitting up in the chair.walker within reach.Call light within reach.
--- NOTE | 2020-06-29 08:08 | NUR ---
NURSE HAND-OFF: Important Events on Shift: Patient Status: Diet: Pending Orders: Pending Results/Labs: Pending MD notification: Latest Vital Signs: Temperature 97.9 , Pulse 78 , B/P 107 /68 , Respiratory Rate 20 , O2 SAT 97 , Nasal Cannula, O2 Flow Rate 2.0 . Vital Sign Comment: Latest Garcia Fall Score: Fall Risk: Safety Measures: Call light Within Reach, Bed Alarm Zone 1, Side Rails Side Rails x2, Bed position Low and Locked. Fall Precautions: Yellow Socks Patient Fall Education Report given to Tita BERMAN.
[2020-06-29] MEDS: Docusate 100mg cap ORAL SCH (08:37)
[2020-06-29] MEDS: Lyrica 50mg cap ORAL SCH (08:38)
--- NOTE | 2020-06-29 09:22 | Pain Management Progress Note ---
Allergies: Coded Allergies: No Known Allergies (Unverified , 06/27/19) Vitals Vital Signs Date Time Temp Pulse Resp B/P (MAP) Pulse Ox O2 Delivery O2 Flow Rate FiO2 06/29/20 08:00 96.8 90 20 138/76 (96) 98 06/29/20 04:00 97.9 78 20 107/68 (81) 97 Medications Current Medications Acetaminophen (Tylenol) 650 mg Q4H PRN ORAL headache Last administered on 06/28/20at 11:42; Start 06/26/20 at 14:30; Stop 07/26/20 at 14:29 Acetaminophen (Tylenol) 650 mg Q6H PRN ORAL Temp >100.5; Start 06/26/20 at 12:00; Stop 07/26/20 at 11:59 Acetaminophen/ Butalbital/ Caffeine (Fioricet) 1 tab Q8H PRN ORAL headache; Start 06/26/20 at 12:00; Stop 07/26/20 at 11:59 Al Hydroxide/Mg Hydroxide (Mylanta) 30 ml Q6H PRN ORAL gerd; Start 06/26/20 at 12:00; Stop 07/26/20 at 11:59 Aripiprazole (Abilify) 15 mg DAILY ORAL Last administered on 06/29/20at 08:38; Start 06/27/20 at 09:00; Stop 08/11/20 at 08:59 Clonidine HCl (Catapres Tab) 0.1 mg Q8H PRN ORAL For High Blood Pressure; Start 06/26/20 at 12:00; Stop 09/24/20 at 11:59 Cyclobenzaprine HCl (Flexeril) 10 mg Q8H PRN ORAL Muscle Spasm; Start 06/26/20 at 12:00; Stop 07/03/20 at 11:59 Diphenhydramine HCl (Benadryl) 25 mg Q6H PRN ORAL Itching Last administered on 06/28/20at 05:56; Start 06/26/20 at 12:00; Stop 07/26/20 at 11:59 Docusate Sodium (Colace) 100 mg TWICE A DAY ORAL Last administered on 06/29/20at 08:37; Start 06/26/20 at 18:00; Stop 07/26/20 at 17:59 Hydromorphone HCl (Dilaudid) 1 mg Q3H PRN SUBQ Severe Breakthru Pain (>7); Start 06/26/20 at 12:00; Stop 07/03/20 at 11:59 Ondansetron HCl (Zofran) 4 mg Q4H PRN IVP Nausea & Vomiting; Start 06/26/20 at 12:00; Stop 07/26/20 at 11:59 Oxycodone HCl (Roxicodone) 10 mg Q3H PRN ORAL Moderate Pain (Pain Scale 4-6) Last administered on 06/28/20at 21:18; Start 06/27/20 at 20:30; Stop 07/04/20 at 20:29 Pantoprazole (Protonix) 40 mg BEDTIME ORAL Last administered on 06/28/20at 21:14; Start 06/26/20 at 21:00; Stop 07/26/20 at 20:59 Phenol/Menthol (Chloraseptic) 1 spray Q2H PRN ORAL sore throat; Start 06/26/20 at 12:00; Stop 09/24/20 at 11:59 Pregabalin (Lyrica) 200 mg DAILY ORAL Last administered on 06/29/20at 08:38; Start 06/27/20 at 09:00; Stop 08/11/20 at 08:59 Sumatriptan Succinate (Imitrex) 50 mg DAILY PRN ORAL migraine; Start 06/26/20 at 12:15; Stop 07/26/20 at 12:14 Plan: Patient seen after PT session. I discussed with physical therapist & nurse. A+Ox 3. Pain level 5 / 10 on the visual-analog pain scale; minimal at rest; pain with ambulation primarily. A+Ox 3. Vitals stable. Denies SOB or chest pain. Breathing comfortably on room air. Tolerating pain levels off of STRIP FEEDER. MAR medication list reviewed. Continue PRN oxy-IR and sq dilaudid; both which remain available. Advanced diet tolerated. +flatus after ALIF, but no BM. Will add daily prn MOM, and asked RN to dose x 1 now. Now able to void urine; encourage walking to restroom, and NOT using bedpan. I explained to pt that she needs to AMBULATE; pt agrees to comply. Continue advancing ambulation with physical therapy as tolerated. Continue incentive spirometer usage. Pt has been compliant. SCDs for mechanical prophylaxis against deep venous thrombosis and PEs. Surgeon recommends ARU txfr. area operations manager is working on ARU txfr; currently, bed is not available. Pt appears stable to txfr whenever ARU bed opens-up. No Rx needed for outpt pain medication usage at this time, since planning ARU txfr. Nicola Do MD Jun 29, 2020 09:22
[2020-06-29 12:00] VITALS: BP 130/61
--- NOTE | 2020-06-29 13:40 | NUR ---
*-*DISCHARGE PLAN*-* PATIENT HAS BEEN ACCEPTED AND [facility] [place] P: [phone] FOR NURSE TO NURSE REPORT ROOM# 505 [facility] SET FOR 3PM S/W CRISTINA [id number]. S/W PATIENTS FAMILY, STEVEN, WHO IS IN AGREEMENT WITH DISCHARGE PLAN.
[2020-06-29] MEDS: oxyCODONE 5mg IR tab ORAL PRN (15:15)
[~2020-06-29 15:33] MED LIST: ATORVASTATIN CA40 MG ORAL; Acetaminophen (Non formulary) 100 ML IV ONE; Atropine Sulfate 0.4mg/ml inj IVP PRN; Bacitracin 50000 Units Vial ONE; CELEBREX200 MG ORAL; Chloraseptic Spray 20mL Bottle ORAL PRN; Cyclobenzaprine 10mg Tab ORAL PRN; D5 1/2NS 1000ml IV ONE; DiphenhydrAMINE 50mg/ml Inj IVP PRN; Gelfoam Size TOPIC ONE; HYDROcodone/Acetamin 5/325 tab ORAL PRN; HYDROcodone/Acetamin 7.5/325 tab ORAL PRN; Heparin 5000 units/ml inj ONE; Ketorolac 30mg Inj IV PRN; LORazepam Inj 2mg/ml 1ml IV PRN; LR 1000ml 1,000 ML IVLG SCH; LR 1000ml ONE; LYRICA100 MG ORAL; Labetalol 5mg/ml 20ml vial IV PRN; Lidocaine 1% 10mg/ml/Epi 0.005mg/ml 30ml vial INJ ONE; Lidocaine 1% MPF 10mg/ml 5ml ONE; Lidocaine 1% Plain 30 ml INJ ONE; METFORMIN HCL500 M1 ORAL; Meperidine 25mg/1ml Inj (FOR RIGORS ONLY) IV PRN; Metoclopramide 10mg/2ml Inj IVP PRN; Midazolam 2mg/2ml Inj IVP PRN; Milk of Magnesia 30ml Ud ORAL PRN; Milk of Magnesia 30ml Ud ORAL SCH; NS Irrig 2000ml IRRIG ONE; PCA Education Pamphlet MISC ONE; PCA HYDROmorphone 1mg/ml 30 ML IV PRN; Rate Change PCA 1 Each MISC PRN; Rocuronium Bromide 50mg/5ml Inj IV ONE; Ropivacaine 5mg/ml Vial 30ml INJ ONE; SUMAtriptan 50mg tab ORAL PRN; Sterile Water Irrig 2000ml IRRIG ONE; TRAMADOL HCL50 MG ORAL; Thrombin 5000 units TOPIC ONE; Tubing IV Secondary IV ONE; Vancomycin 1gm vial IVPB ONE; ceFAZolin sod 1 GM in NS 55 ML IVPB ONE; fentaNYL 100 mcg/2 mL IV ONE; fentaNYL 100 mcg/2 mL IV PRN; oxyCODONE 15mg IR tab ORAL PRN; oxyCODONE HCL/Acetaminophen 5/325mg ORAL PRN
--- NOTE | 2020-06-29 15:42 | NUR ---
NURSE NOTES: Discharge by [employer],IV removed and ID hospital band removed.Patient was given pain medication for complaint of back pain.[facility] was updated regarding medication given.Patient has her back brace and other personal belongings.
--- NOTE | 2020-07-03 08:30 | Discharge Summary ---
Discharge Summary Discharge Summary _ Date of admission: 06/26/2020 Date of discharge: 06/29/[address] Burton History of Present Illness and Brief Hospital Course Ms. Georges is a 54-year-old female who presented to [facility] for a scheduled surgery. Patient had severe and intractable back pain, radiation in both legs, left worse than right secondary to spondylolisthesis in L4-L5. She elected to undergo surgical intervention to stabilize the L4-L5 level which had radiographic findings of instability with advanced facet arthrosis. Patient was taken to the OR and underwent ALIF at L4-L5 via anterior psoas extreme lateral interbody fusion/anterolateral approach. Patient tolerated the procedure well. The details of the surgery can be found in the operative notes by Dr. Burton and Dr. Herrera. Given her coexisting medical conditions, her medication regimen including her pain medications were optimized accordingly. Patient was evaluated by a physical therapist as well. Patient was able to ambulate 10 feet with a walker though at a slow pace. Mobility was limited by pain. Patient was recommended to be discharged to acute rehab unit for continued rehab. Patient was medically stable for discharge and was [facility] [place]. Consultants: Pain management Dr. Do Discharge Condition Stable Final diagnoses Status post prior laminectomy, L4-L5, with residual stenosis and instability; spondylolisthesis, L4-L5. Status post extreme lateral interbody fusion using anterior to psoas approach. s/p Posterior spinal fusion, L4-L5. s/p interspinous fixation, L4-L5, using stapling. s/p left-sided redo hemilaminectomy, L4-L5. I have been assigned to dictate discharge summary for this account. I was not involved in the patient's management Kirby Magaña Jul 03, 2020 08:30
== END | DRG 455 ==
LOC: SDSOVERFLO 06-26 09:51 → 2E 06-26 18:05
PROC: 0SG00A0 Fusion of Lumbar Vertebral Joint with Interbody Fusion Device, Anterior Approach, Anterior Column, Open Approach (ICD-10-PCS; principal; 2020-06-26 12:30)
PROC: 0SG00J1 Fusion of Lumbar Vertebral Joint with Synthetic Substitute, Posterior Approach, Posterior Column, Open Approach (ICD-10-PCS; principal; 2020-06-26 12:30)
DX: M43.16 Spondylolisthesis, lumbar region (principal); M54.16 Radiculopathy, lumbar region; M53.2X6 Spinal instabilities, lumbar region; M48.061 Spinal stenosis, lumbar region without neurogenic claudication; Z68.35 Body mass index [BMI] 35.0-35.9, adult; G89.18 Other acute postprocedural pain; Z98.890 Other specified postprocedural states; K21.9 Gastro-esophageal reflux disease without esophagitis; M79.7 Fibromyalgia; F32.9 Major depressive disorder, single episode, unspecified; E66.01 Morbid (severe) obesity due to excess calories; G44.89 Other headache syndrome; Z90.49 Acquired absence of other specified parts of digestive tract; E78.5 Hyperlipidemia, unspecified; M32.9 Systemic lupus erythematosus, unspecified
CPT/HCPCS: 36415; 72020; 76000; 80048; 85025; 86850; 86900; 86901; 87081; 94003; 94150; J2180; J2405